=== PATIENT | male | born 1985 | race Caucasian/White ===

== ENCOUNTER 2017-12-04 15:04 | Emergency (ER) | payer MEDICAID ==
[~2017-12-04] VITALS: Ht 188 cm; Wt 74.8 kg
[2017-12-04 15:04] VITALS: BP_SYST 137
[2017-12-04] MEDS ORDERED: PREDNISONE 20 MG TABLET PO ONE (15:15)
[2017-12-04] MEDS ORDERED: ALBUTEROL SULFATE 0.083% 2.5 MG/3 ML VIAL.NEB INH ONE (15:15)
[2017-12-04] MEDS ORDERED: IPRATROPIUM BROM 0.5 MG/2.5 ML VIAL.NEB (ATROVENT) INH ONE (15:15)
[2017-12-04 16:45] VITALS: BP_SYST 109
== END 2017-12-04 16:45 | disposition home or self-care (01) ==
LOC: SED 15:04
DX: R06.2 Wheezing (principal); R11.10 Vomiting, unspecified; J45.901 Unspecified asthma with (acute) exacerbation; R03.0 Elevated blood-pressure reading, without diagnosis of hypertension
CPT/HCPCS: 94640; 99283; J7512; J7613

== ENCOUNTER 2020-12-18 17:14 | Emergency (ER) | payer MEDICAID ==
[~2020-12-18] VITALS: Ht 188 cm; Wt 74.8 kg
[2020-12-18 17:41] VITALS: BP_SYST 136
[2020-12-18] MEDS ORDERED: NAPR-1172 PO (18:41)
[2020-12-18 19:00] VITALS: BP_SYST 136
== END 2020-12-18 19:00 | disposition home or self-care (01) ==
LOC: SED 17:14
DX: M77.8 Other enthesopathies, not elsewhere classified (principal); J45.909 Unspecified asthma, uncomplicated; Z79.899 Other long term (current) drug therapy
CPT/HCPCS: 99284

== ENCOUNTER 2021-06-03 14:15 | Emergency (ER) | payer MEDICAID, SELFPAY ==
[~2021-06-03] VITALS: Ht 188 cm; Wt 72.6 kg
[~2021-06-03 14:15] MED LIST: NAPR-1172 PO
[2021-06-03 14:19] VITALS: BP_SYST 139
--- NOTE | 2021-06-03 14:45 | NUR ---
Pt to chair in [place] for evaluation.
--- NOTE | 2021-06-03 14:55 | NUR ---
Pt brought by self, A&Ox4, pt presents to ER with R side neck pain x 2 weeks, pt denies any recent trauma, skin pink and warm, cap refill <3, VSS.
--- NOTE | 2021-06-03 15:00 | NUR ---
Dr. Gant at bedside to assess.
[2021-06-03] MEDS ORDERED: TRIAMCINOLONE ACETONIDE 40 MG/ML IM ONE (15:15)
[2021-06-03] MEDS ORDERED: LIDOCAINE MPF 2% 5mL VIAL INJ ONE (15:15)
[2021-06-03] MEDS ORDERED: LIDOCAINE 2%, 20 ML MDV ONE (15:32)
--- NOTE | 2021-06-03 15:52 | NUR ---
Dr Gant at bedside injecting Triamcinolone medication IM to neck.
[2021-06-03 16:05] VITALS: BP_SYST 139
--- NOTE | 2021-06-03 16:07 | NUR ---
Patient given written and verbal discharge instructions and verbalizes understanding. ER MD discussed with patient the results and treatment provided. Patient in stable condition. ID arm band removed. No Rx given. Patient educated on pain management and to follow up with PMD. Pain Scale 2/10. Opportunity for questions provided and answered. Medication side effect fact sheet provided.
== END 2021-06-03 16:05 | disposition home or self-care (01) ==
LOC: SED 14:15
DX: M79.2 Neuralgia and neuritis, unspecified (principal); J45.909 Unspecified asthma, uncomplicated
CPT/HCPCS: 96372; 99283; J2001 ×2; J3301

== ENCOUNTER 2022-04-18 15:42 | Emergency (ER) | payer MEDICAID ==
[~2022-04-18] VITALS: Ht 188 cm; Wt 77.1 kg
[2022-04-18 16:01] VITALS: BP_SYST 153
[2022-04-18] MEDS ORDERED: IPRATROPIUM/ALBUTEROL SULFATE 3 ML AMPUL.NEB (DUONEB) INH ONE ×2 (16:15→16:45)
[2022-04-18] MEDS ORDERED: DEXAMETHASONE SOD PHOSPHATE 10 MG/ML VIAL IM ONE (16:15)
[2022-04-18] MEDS ORDERED: ALBU2.5V7 INH (17:43)
[2022-04-18] MEDS ORDERED: PSEU-313 PO (17:43)
[2022-04-18] MEDS ORDERED: DEC4 PO ×2 (17:43→17:46)
[2022-04-18 17:57] VITALS: BP_SYST 139
== END 2022-04-18 17:57 | disposition home or self-care (01) ==
LOC: SED 15:42
DX: J45.901 Unspecified asthma with (acute) exacerbation (principal); R06.02 Shortness of breath; R09.81 Nasal congestion; Z79.899 Other long term (current) drug therapy
CPT/HCPCS: 99283; 71045; 96372; 94640; J1100

== ENCOUNTER 2022-07-02 21:31 | Emergency (ER) | payer MEDICAID ==
[~2022-07-02] VITALS: Ht 188 cm; Wt 77.1 kg
[~2022-07-02 21:31] MED LIST changes: +ALBU2.5V7 INH; +DEC4 PO; +PSEU-313 PO
[2022-07-02 21:41] VITALS: BP_SYST 137
--- NOTE | 2022-07-02 21:44 | NUR ---
PATIENT FROM HOME COMPLAINING OF PAIN TO RIGHT HAND AFTER FALL. LIMITED ROM AND SWELLING NOTED. PAIN 6/10
--- NOTE | 2022-07-02 22:37 | NUR ---
Patient to ER bed 01 to gown for evaluation. Side rails up. Report given to RANDA HUGO
--- NOTE | 2022-07-02 22:42 | NUR ---
ER Dr. SCHUMACHER at bedside examining patient.
[2022-07-02] MEDS ORDERED: MORPHINE 4 MG INJ. 4 MG/ML VIAL IM ONE (22:45)
[2022-07-02] MEDS ORDERED: IBUP-1971 PO (22:57)
[2022-07-02] MEDS ORDERED: HYDR-3917 PO (22:57)
[2022-07-02 23:18] VITALS: BP_SYST 124
--- NOTE | 2022-07-02 23:18 | NUR ---
Patient given written and verbal discharge instructions and verbalizes understanding. ER MD discussed with patient the results and treatment provided. Patient in stable condition. ID arm band removed. Rx of [place] 5/325 mg and Motrin 800 mg sent to pharmacy of choice. Patient educated on pain management and to follow up with PMD. Pain Scale 6/10. Opportunity for questions provided and answered.
== END 2022-07-02 23:18 | disposition home or self-care (01) ==
LOC: SED 21:31
DX: S62.304A Unspecified fracture of fourth metacarpal bone, right hand, initial encounter for closed fracture (principal); S62.306A Unspecified fracture of fifth metacarpal bone, right hand, initial encounter for closed fracture; J45.909 Unspecified asthma, uncomplicated; Z79.899 Other long term (current) drug therapy; W10.8XXA Fall (on) (from) other stairs and steps, initial encounter; Y93.89 Activity, other specified; Y92.89 Other specified places as the place of occurrence of the external cause; Y99.8 Other external cause status
CPT/HCPCS: 99283; 73130; 96372; 29125; J2270

== ENCOUNTER 2022-07-04 11:54 | Emergency (ER) | payer MEDICAID ==
[~2022-07-04] VITALS: Ht 188 cm; Wt 78.9 kg
[~2022-07-04 11:54] MED LIST changes: +HYDR-3917 PO; +IBUP-1971 PO
--- NOTE | 2022-07-04 12:00 | NUR ---
BIB SELF FROM HOME WITH C/O SEVERE ELBOW PAIN - 02/06 THAT WAS CAUSED DUE TO A MECHANICAL FALL. PT STATES HE WAS AT THIS ER 2 DAYS AGO BECAUSE OF A SIMILAR FALL THAT LEAD TO HIM LANDING ON HIS WRIST/HAND. HX - N/A PT IS AAX04, NAD, VSS, BREATHING EVEN AND UNLABORED ON RA, PT ON SPECIMEN ACCESSIONER SHOW NSR. PT REST ON GURNEY IN HALLWAY. SAFETY PRECAUTIONS AND COMFORT MEASURES IN PLACE. PENDING MD MIXON AND ORDERS.
--- NOTE | 2022-07-04 12:05 | NUR ---
ER Dr. DUARTE at bedside examining patient.
[2022-07-04 12:35] VITALS: BP_SYST 148
[2022-07-04] MEDS ORDERED: KETOROLAC TROMETHAMINE 60 MG/2 ML VIAL IM ONE (13:45)
[2022-07-04] MEDS ORDERED: NAPR-690 PO (14:39)
--- NOTE | 2022-07-04 14:53 | NUR ---
PT IS MEDICALLY FOR D/C. D/C INSTRUCTIONS GIVEN TO PT. PT TO FOLLOW-UP WITH PCP WITHIN 1-3 DAYS AND TO RETURN TO ED FOR WORSENING S/S. PT VERBALIZED UNDERSTANDING. PT IS AAOX4, NAD, VSS, WRISTBAND REMOVED. PT AMBULATORY WITH STEADY GAIT. PT LEFT ED WITH ALL BELONGINGS.
[2022-07-04 14:55] VITALS: BP_SYST 128
== END 2022-07-04 14:53 | disposition home or self-care (01) ==
LOC: SED 11:54
DX: S62.304A Unspecified fracture of fourth metacarpal bone, right hand, initial encounter for closed fracture (principal); S62.306A Unspecified fracture of fifth metacarpal bone, right hand, initial encounter for closed fracture; J45.909 Unspecified asthma, uncomplicated; Z79.899 Other long term (current) drug therapy; W17.89XA Other fall from one level to another, initial encounter; Y93.89 Activity, other specified; Y92.89 Other specified places as the place of occurrence of the external cause; Y99.8 Other external cause status
CPT/HCPCS: 99283; 96372; J1885

== ENCOUNTER 2022-07-10 07:12 | Emergency (ER) | payer MEDICAID ==
[~2022-07-10] VITALS: Ht 188 cm; Wt 75.3 kg
[~2022-07-10 07:12] MED LIST changes: +NAPR-690 PO
[2022-07-10 07:48] VITALS: BP_SYST 136
--- NOTE | 2022-07-10 08:15 | NUR ---
ER at bedside examining patient.
--- NOTE | 2022-07-10 08:15 | NUR ---
Placed in room 1 . Placed on oil well cable tool operator, blood pressure machine and pulse oximeter. To gown for exam. Side rails up.
[2022-07-10 08:20] LABS: BASOPHILS % (AUTO) 0.4 % (0.0-2.0); EOSINOPHILS # (AUTO) 0.3 K/uL (0.0-0.4); EOSINOPHILS % (AUTO) 3.5 % (0.0-4.0); HEMATOCRIT 41.1 % (36-54); LYMPHOCYTES # (AUTO) 0.9 K/uL (1.0-5.5); LYMPHOCYTES % (AUTO) 10.2 % (20.5-51.5); MEAN CORPUSCULAR HEMOGLOBIN 32 pg (27-31); MEAN CORPUSCULAR HGB CONC 34 % (32-36); MEAN CORPUSCULAR VOLUME 93 fL (79.0-98.0); MONOCYTES # (AUTO) 0.7 K/uL (0.0-1.0); MONOCYTES % (AUTO) 8.2 % (1.7-9.3); NEUTROPHILS # (AUTO) 6.8 K/uL (1.8-7.7); NEUTROPHILS % (AUTO) 77.7 % (40.0-70.0); PLATELET COUNT (AUTO) 243 K/uL (130-430); RED CELL DISTRIBUTION WIDTH 15.8 % (9.0-15.0); WHITE BLOOD COUNT (AUTO) 8.8 K/uL (4.8-10.8)
[2022-07-10 08:52] LABS: CALCIUM 9.3 mg/dL (8.4-11.0); CREATININE 1.37 mg/dL (0.55-1.30)
[2022-07-10 08:55] LABS: PROTHROMBIN TIME 10.1 SECS (9.5-12.5)
[2022-07-10 09:07] LABS: ALBUMIN 4.4 g/dL (3.4-4.8); TOTAL BILIRUBIN 1.3 mg/dL (0.0-1.0)
[2022-07-10] MEDS ORDERED: IBUP-1971 PO (09:30)
[2022-07-10] MEDS ORDERED: TRAM50TA2 PO (09:30)
[2022-07-10 09:45] VITALS: BP_SYST 150
--- NOTE | 2022-07-10 09:49 | NUR ---
Note sugey in EDM - 07/10/22 at 0953 by [id number] PATIENT LEFT AMAPatient does not wish to proceed with medical care recommended by DR BANUELOS. Patient given information related to possible complications, up to and including , which could occur as a result of leaving hospital at this time. Patient verbalizes understanding of risks involved leaving against medical advice. Patient has signed AMA form.
--- NOTE | 2022-07-10 09:53 | NUR ---
Patient given written and verbal discharge instructions and verbalizes understanding. ER MD discussed with patient the results and treatment provided. Patient in stable condition. ID arm band removed. IV catheter removed intact and dressing applied, no active bleeding. Rx of TRAMADOL/IBUPROFEN given. Patient educated on pain management and to follow up with PMD. Pain Scale . Opportunity for questions provided and answered. Medication side effect fact sheet provided.
== END 2022-07-10 09:48 | disposition home or self-care (01) ==
LOC: SED 07:12
DX: K62.5 Hemorrhage of anus and rectum (principal); K52.89 Other specified noninfective gastroenteritis and colitis; J45.909 Unspecified asthma, uncomplicated; Z79.899 Other long term (current) drug therapy
CPT/HCPCS: 36415; 76376; 80053; 82150; 83605; 83690; 85025; 85610-TC; 85730-TC; 86886; 86900; 86901; 99284

== ENCOUNTER 2023-11-03 16:00 | Emergency (ER) | payer MEDICAID, OTHER ==
[~2023-11-03 16:00] MED LIST changes: +TRAM50TA2 PO
== END 2023-11-03 17:30 | disposition left against medical advice (07) ==
LOC: SED 16:00
DX: R10.9 Unspecified abdominal pain (principal); Z53.21 Procedure and treatment not carried out due to patient leaving prior to being seen by health care provider

== ENCOUNTER 2023-11-08 10:52 | Inpatient (IN) | payer OTHER ==
[~2023-11-08] VITALS: Ht 188 cm; Wt 74.8 kg
[2023-11-08] VITALS (12 sets, daily range): BP systolic 122–153; PULSE 78–117; RESP 13–19; TEMP 98.3–99.6; O2SAT 95–99
[2023-11-08] MEDS: NACL 0.9% 2,000 ML IV ONE (11:23)
[2023-11-08] MEDS: ONDANSETRON HCL 4 MG/2 ML VIAL IVP ONE (11:24)
[2023-11-08 11:25] LABS: BASOPHILS # (AUTO) 0.1 K/uL (0.0-0.2); BASOPHILS % (AUTO) 1.2 % (0.0-2.0); EOSINOPHILS % (AUTO) 0.4 % (0.0-4.0); HEMATOCRIT 36.8 % (36-54); HEMOGLOBIN 12.5 g/dL (14.0-18.0); LYMPHOCYTES % (AUTO) 16.7 % (20.5-51.5); MEAN CORPUSCULAR HEMOGLOBIN 33 pg (27-31); MEAN CORPUSCULAR HGB CONC 34 % (32-36); MEAN CORPUSCULAR VOLUME 96 fL (79.0-98.0); MONOCYTES # (AUTO) 0.6 K/uL (0.0-1.0); MONOCYTES % (AUTO) 9.2 % (1.7-9.3); NEUTROPHILS # (AUTO) 4.4 K/uL (1.8-7.7); NEUTROPHILS % (AUTO) 72.5 % (40.0-70.0); PLATELET COUNT (AUTO) 507 K/uL (130-430); RED BLOOD CELL COUNT(AUTO) 3.83 MIL/uL (4.2-6.2); RED CELL DISTRIBUTION WIDTH 13.7 % (9.0-15.0)
[2023-11-08 11:35] LABS: BILIRUBIN,URINE NEGATIVE (NEGATIVE); BLOOD, URINE NEGATIVE (NEGATIVE); CLARITY/URINE CLEAR (CLEAR); COLOR,URINE YELLOW (YELLOW); GLUCOSE,URINE NEGATIVE (NEGATIVE); KETONES,URINE NEGATIVE (NEGATIVE); LEUKOCYTE ESTERASE ,URINE NEGATIVE (NEGATIVE); NITRITE, URINE NEGATIVE (NEGATIVE); PH,URINE 6.5 (5.0-8.0); PROTEIN URINE NEGATIVE (NEGATIVE); UROBILINOGEN,URINE 0.2 (0.2-1.0)
[2023-11-08 11:42] LABS: PROTHROMBIN TIME 10.7 SECS (9.5-12.5)
[2023-11-08 11:47] LABS: BARBITURATE, URINE NEGATIVE (NEG <=200); BENZODIAZEPINE, URINE NEGATIVE (NEG <=150); CANNABINOID, URINE NEGATIVE (NEG <=50); COCAINE, URINE NEGATIVE (NEG <=150); METHAMPHETAMINES SCREEN,URINE NEGATIVE (NEG <=500); OPIATE, URINE NEGATIVE (NEG <=100); PHENCYCLIDINE SCREEN,URINE NEGATIVE (NEG <=25); UR TRICYCLIC ANTIDEPRESSANTS NEGATIVE (NEG <=300); URINE AMPHETAMINE NEGATIVE (NEG <=500); URINE METHADONE NEGATIVE (NEG <=200); URINE OXYCODONE SCREEN NEGATIVE (NEG <=100)
[2023-11-08 11:51] LABS: ALANINE AMINOTRANSFERASE 60 U/L (12-78); ALBUMIN 3.7 g/dL (3.4-4.8); ANION GAP 7 (5-15); ASPARTATE AMINOTRANSFERASE 59 U/L (10-37); BILIRUBIN,DIRECT 0.3 mg/dL (0.0-0.3); CALCIUM 8.7 mg/dL (8.4-11.0); CARBON DIOXIDE 28 mmol/L (23-29); CHLORIDE 100 mmol/L (98-107); CREATINE KINASE, TOTAL 359 U/L (39-308); GFR AFRICAN AMERICAN 41 mL/min (>90); GLUCOSE 152 mg/dL (74-106); POTASSIUM 3.6 mmol/L (3.5-5.1); SALICYLATE 2 mg/dL (3-30); SODIUM SERUM 135 mmol/L (136-145); TOTAL BILIRUBIN 1.6 mg/dL (0.0-1.0); UREA NITROGEN, BLOOD 10 mg/dL (8-21)
[2023-11-08 11:52] LABS: ACETAMINOPHEN < 1 ug/mL (1-30); GFR NON AFRICAN-AMERICAN 34 mL/min (>90)
[2023-11-08 11:53] LABS: ACETONE, SERUM NEGATIVE (NEGATIVE); ALCOHOL, BLOOD < 3 mg/dL (<10)
[2023-11-08] MEDS: METOCLOPRAMIDE HCL 10 MG/2 ML VIAL IVP ONE (12:05)
[2023-11-08 12:13] LABS: CKMB RELATIVE INDEX 0.8 (0.0-2.9)
[2023-11-08] MEDS ORDERED: ONDANSETRON HCL 4 MG/2 ML VIAL IVP PRN (14:00)
[2023-11-08] MEDS ORDERED: ACETAMINOPHEN 325 MG TABLET PO PRN ×2 (14:00→14:30)
[2023-11-08] MEDS ORDERED: MORPHINE 4 MG INJ. 4 MG/ML VIAL IVP PRN (14:00)
[2023-11-08] MEDS: DIPHENHYDRAMINE INJ 50 MG/ML VIAL IVP ONE (14:04)
[2023-11-08] MEDS: D5/0.45 NS 1,000 ML IV SCH (16:13)
[2023-11-08] MEDS ORDERED: hydrALAZINE HCL 20 MG/ML VIAL IVP PRN (18:15)
[2023-11-08] MEDS: HYDROcodone/ACETAMIN 5-325 MG TAB (NORCO/ VICODIN) PO PRN (18:23)
[2023-11-08 19:36] LABS: CALCIUM 8.3 mg/dL (8.4-11.0); CREATININE 1.98 mg/dL (0.55-1.30); POTASSIUM 3.6 mmol/L (3.5-5.1)
[2023-11-08] MEDS: LORazepam 2 MG/ML VIAL IVP PRN (21:23)
[2023-11-09] VITALS (23 sets, daily range): BP systolic 114–156; PULSE 65–97; RESP 11–20; TEMP 98.5–99.2; O2SAT 90–100
[2023-11-09] MEDS: IPRATROPIUM/ALBUTEROL SULFATE 3 ML AMPUL.NEB (DUONEB) INH PRN (04:41)
[2023-11-09 07:22] LABS: BASOPHILS # (AUTO) 0.1 K/uL (0.0-0.2); BASOPHILS % (AUTO) 1.5 % (0.0-2.0); EOSINOPHILS # (AUTO) 0.2 K/uL (0.0-0.4); HEMATOCRIT 33.8 % (36-54); HEMOGLOBIN 11.5 g/dL (14.0-18.0); LYMPHOCYTES # (AUTO) 1.7 K/uL (1.0-5.5); LYMPHOCYTES % (AUTO) 34.6 % (20.5-51.5); MEAN CORPUSCULAR HEMOGLOBIN 33 pg (27-31); MEAN CORPUSCULAR HGB CONC 34 % (32-36); MEAN CORPUSCULAR VOLUME 97 fL (79.0-98.0); MONOCYTES # (AUTO) 0.5 K/uL (0.0-1.0); MONOCYTES % (AUTO) 11.4 % (1.7-9.3); NEUTROPHILS # (AUTO) 2.3 K/uL (1.8-7.7); NEUTROPHILS % (AUTO) 47.5 % (40.0-70.0); PLATELET COUNT (AUTO) 392 K/uL (130-430); RED BLOOD CELL COUNT(AUTO) 3.48 MIL/uL (4.2-6.2); WHITE BLOOD COUNT (AUTO) 4.8 K/uL (4.8-10.8)
[2023-11-09 07:41] LABS: ALBUMIN 2.7 g/dL (3.4-4.8); CREATININE 1.8 mg/dL (0.55-1.30); POTASSIUM 3.5 mmol/L (3.5-5.1); TOTAL PROTEIN, SERUM 5.5 g/dL (6.4-8.3)
[2023-11-09] MEDS: PANTOPRAZOLE SODIUM 40 MG TAB PO SCH (09:21)
[2023-11-09] MEDS: POLYETHYLENE GLYCOL 3350, 17 GM/ POWD.PACK PO ONE (21:20)
== END 2023-11-09 21:40 | DRG 817 ==
LOC: SED 10:52 → SIC 13:59 → SMU 11-09 15:35 → STU 11-09 16:38
PROVIDERS: ADMIT Family Medicine; ATTEND Family Medicine
DX: T50.992A Poisoning by other drugs, medicaments and biological substances, intentional self-harm, initial encounter (principal); N17.9 Acute kidney failure, unspecified; R45.851 Suicidal ideations; J45.909 Unspecified asthma, uncomplicated; Z20.822 Contact with and (suspected) exposure to COVID-19; F31.9 Bipolar disorder, unspecified; F10.129 Alcohol abuse with intoxication, unspecified; F41.9 Anxiety disorder, unspecified; Y92.89 Other specified places as the place of occurrence of the external cause; Z79.899 Other long term (current) drug therapy
CPT/HCPCS: 36415; 76700; 80048; 80053; 80076; 80307; 81001; 81003; 82009; 82550; 82553; 83605; 83930; 84484; 85025; 85610; 85730; 93005; 94070; 94640; 96361; 96374; 96375; 99285; G0480; G0481; G0482; J1200; J2060; J2405; J2765